=== PATIENT | female | born 1990 | race Caucasian/White ===

== ENCOUNTER 2024-09-07 10:16 | Emergency (ER) | payer BC ==
[2024-09-07 10:44] VITALS: BP 137/75; PULSE 85; RESP 20; TEMP 97.9; BMI 26.6
[2024-09-07] MEDS ORDERED: ACETAMINOPHEN 500 MG TABLET (FP) ONE (12:59)
[2024-09-07] MEDS: ACETAMINOPHEN 500 MG TABLET (FP) PO ONE (13:05)
== END 2024-09-07 15:36 | disposition home or self-care (01) ==
LOC: JER 10:16
DX: R51.9 Headache, unspecified (principal); R20.0 Anesthesia of skin; R20.2 Paresthesia of skin
CPT/HCPCS: 70450-TC; 84703; 99283-25